=== PATIENT | female | born 1980 | race Caucasian/White ===

== ENCOUNTER 2017-02-23 07:00 | Inpatient (IN) | payer OTHER ==
--- NOTE | ~2017-02-23 | A ---
[facility] Nutrition Therapy DATE: 02/25/17 Patient: KACI Chris SHAWN Physician: HARMIC Address: [address] [place] [address] Room/Bed: [address], Zip: [place] [address] Admit Date: 02/23/17 Date of : [birth year] Height: 5 2 Weight: 99 45.3592 NUTRITIONAL ASSESSMENT: REASON: LOW BMI (18.3) PATIENT ADMITTED FOR DETOX AND SI PMH: HEP C, HX WITHDRAWAL SEIZURES Anthropometrics: HT: 5'2", WT:l 100#, BMI: 18.3, %IBW: 91 Labs: NO LABS AVAILABLE Meds: DESYREL, MVI, DETOX PROTOCOL Assessment: PATIENT IS A 36 Y/O FEMALE ADMITTED FOR SI AND DETOX. PATIENT IS CURRENTLY UNEMPLOYED, LIVES ALONE, SMOKES 1 1/2 PPD, HAS DAILY ETOH AND MARIJUANA USE, AND HAS A RECENT HX OF COCAINE AND HEROIN ABUSE. PATIENT HAS A HX OF CHEMICAL DEPENDENCY TREATMENT. UPON ADMIT PATIENT STATED A FAIR APPETITE WITH NO RECENT WEIGHT CHANGES. NURSING REPORTS FAIR PO INTAKES. PATIENT HAS HAD SOME C/O NAUSEA AND DIARRHEA. SHE IS ACTIVELY DETOXING. DESYREL MAY CAUSE AN INCREASE IN WEIGHT AND APPETITE. THERE ARE NO SKIN ISSUES NOTED ATT. PATIENT IS ON A REGULAR DIET. Dx: INADEQUATE NUTRIENT INTAKE R/T CURRENT CONDITIONS, DRUG USE AEB LOW BMI Intervention: REGULAR DIET, MEDS PER MD, DETOX, PSYCH Monitoring, Evaluation and Goals: 1. ADEQUATE PO INTAKES >50% OF MEALS 2. PREVENT, CORRECT MICRO/MACRO NUTRIENT DEFICIENCIES 3. WEIGHT; PROMOTE A STEADY WEIGHT GAIN TOWARDS A HEALTHY BMI OF 19-25 MONITOR: WEIGHTS, LABS, PO/FLUID INTAKES Recommendations: 1. CONTINUE REGULAR DIET TOLERATED. OFFER SNACKS BETWEEN MEALS. IF PATIENT HAS C/O HUNGER PLEASE SEND ORDER FOR LARGER PORTIONS AND RD WILL APPROVE 2. ENCOURAGE ADEQUATE PO AND FLUID INTAKES 3. OBTAIN WEIGHTS ROUTINELY (EVERY 3-4 DAYS) 4. IF PO INTAKES FALL BELOW 50% OF MEALS PLEASE ORDER ENSURE BID TO PROMOTE ADEQUATE KCAL AND PROTEIN INTAKES [facility] Nutrition Therapy DATE: 02/25/17 Patient: KACI ESCOBAR Physician: HARMIC Address: [address] [place] [address] Room/Bed: [address], Zip: [place] [address] Admit Date: 02/23/17 Date of : [birth year] Height: 5 2 Weight: [address] TO F/U PER PROTOCOL AND PRN R/T PATIENT MILDLY COMPROMISED Respectfully, PAUL WATT, RAUL, LD [facility] cc: client file
--- NOTE | ~2017-02-23 | DS ---
Unit #: [id number] #: [id number] Patient: KACI ESCOBAR [id number] [facility] [address] [place] [address] [id number] MR#: [id number] NAME: KACI ESCOBAR. ROOM: P184 Age: 36 Sex: F Admission Date: 02/23/2017 : 1980 Discharge Date: 02/28/2017 Attending Physician: Kojo Khan M.D. Primary Care Physician: Matteo Hummel Jr., D.O. DISCHARGE SUMMARY REASON FOR ADMISSION Kaci is a 36-year-old woman, who presented to [facility] in extremely intoxicated state, having made suicidal statements and cuts on her arm. After medical clearance, [facility] DIAGNOSTIC STUDIES LABORATORY RESULTS: Please see hospital chart. HOSPITAL COURSE caleb was admitted and placed on suicide precautions and the alcohol detox protocol. Due to the presence of depression and anxiety, venlafaxine XR 75 mg daily was started for treatment of depression and anxiety with the use of trazodone as needed for insomnia. Her physical examination was conducted and was remarkable only for a history of withdrawal seizures. However, she had no seizure activity, confusion, disorientation, or delirium during her hospitalization. On the date of discharge, she contracted for safety with improved spirits and establishment of sobriety. DISCHARGE DIAGNOSES AXIS I: Alcohol dependence with withdrawal, uncomplicated; major depressive disorder. AXIS II: No diagnosis. AXIS III: None acute. AXIS IV: AXIS V: DISCHARGE INSTRUCTIONS Follow up with [facility] and chemical dependency programing through community mental health resources. She was also referred to [facility] for mental health treatment. DISCHARGE MEDICATIONS Effexor XR 75 mg daily for depression and trazodone 50 mg at bedtime as needed for insomnia. CONDITION AT DISCHARGE Improved. PROGNOSIS Fair to good. Unit #: [id number] #: [id number] Patient: KACI ESCOBAR DIET AND ACTIVITY Per primary care doctor. Dictated by... Kojo Khan M.D. CHANO/donl TD: 03/22/2017 14:30 JOB #: [id number] DISCHARGE SUMMARY Page 1 of 1 X Kojo Khan MD DISCHARGE SUMMARY
--- NOTE | ~2017-02-23 | HP ---
Unit #: [id number] #: [id number] Patient: KACI ESCOBAR [id number] [place] [address] [id number] I MR#: [id number] NAME: KACI ESCOBAR. ROOM: P184 Age: 36 Sex: F Admission Date: 02/23/2017 : 1980 Attending Physician: Kojo Khan M.D. Admitting Physician: Kojo Khan M.D. Primary Care Physician: Matteo Hummel Jr., D.O. HISTORY AND PHYSICAL HISTORY OF PRESENT ILLNESS Kaci is a 36 year old admitted to [facility] because of her abuse of alcohol. PAST MEDICAL HISTORY 1. Long history of alcohol abuse. 2. History of withdrawal seizures. PAST SURGICAL HISTORY Nothing reported. ALLERGIES No known drug allergies. SOCIAL HISTORY Smokes one-half pack per day. Drinks a half gallon of vodka every two days admits to using marijuana frequently. FAMILY HISTORY Medically noncontributory. REVIEW OF SYSTEMS CONSTITUTIONAL: No fever or chills. HEENT: Denies any sore throat, ear pain or runny nose. CARDIOVASCULAR: Denies chest pain, irregular heart rhythm or palpitations. CHEST: Denies shortness of breath or cough. No hemoptysis. GASTROINTESTINAL: Denies nausea, vomiting, diarrhea or chronic constipation. ENDOCRINE: Denies history of increased thirst or urination. No recent significant weight loss or gain. GENITOURINARY: Denies dysuria, frequency, or hematuria. SKIN: Denies any rashes. HEMATOLOGIC: Denies history of increased bleeding or bruising. MUSCULOSKELETAL: Denies any hot, swollen joints. No generalized muscle pain. NEUROLOGIC: Denies problems with vision or speech. No frequent, severe headaches. No numbness, tingling or weakness in any extremities. Denies loss of bladder or bowel control. CURRENT MEDICATIONS Detox protocol. Unit #: [id number] #: [id number] Patient: KACI ESCOBAR PHYSICAL EXAMINATION GENERAL: Alert, well-nourished, in no apparent distress. VITAL SIGNS: Blood pressure 146/100, heart rate 82, respirations 16, temperature 98.6. WEIGHT: 100 pounds. HEIGHT: 5'2". SKIN: She has a healing abrasion along her right elbow. The area has scabbed over. There is no increased redness, swelling, heat or pus noted. HEENT: Normocephalic. TMs not viewed. Oral and nasal passages clear. Conjunctivae clear. Pupils equal, round and reactive to light and accommodation. Extraocular movements intact. NECK: Supple without lymphadenopathy or thyromegaly. HEART: Regular rate and rhythm without murmur. LUNGS: Clear. ABDOMEN: Soft, nontender. : Not done. EXTREMITIES: No evidence of cyanosis, clubbing or edema. Moves all extremities without focal deficit. NEUROLOGICAL: Grossly within normal limits. Cranial Nerves: II: Visual musa are intact. III, IV AND : Extraocular movements are intact. Pupils are equal, round and reactive to light. V: Facial sensation is grossly normal. VII: Facial movements and expression are normal. VIII: Auditory acuity grossly intact. IX, X: Uvula is midline. Phonation is normal. XI: Patient shrugs shoulders and turns head normally. XII: Tongue protrudes in the midline. Sensory and Motor Function: Sensory and motor sensation is grossly normal. Motor: moves all extremities well. Coordination: Gait is normal. Deep Tendon Reflexes: Intact. IMPRESSION Psychiatric admission RECOMMENDATIONS PSYCHIATRIC: Per psychiatrist. MEDICAL: I see no contraindications to participating in facility's activities. MEDICAL PROGNOSIS Good. MEDICAL CONDITION Stable. Dictated by... Cheri Arguello P.A.-C. for Chata Brunner/kyra TD: 02/23/2017 23:08 JOB #: [id number] Unit #: [id number] #: [id number] Patient: KACI ESCOBAR HISTORY AND PHYSICAL Page 1 of 1 X Cheri Arguello HISTORY AND PHYSICAL
--- NOTE | ~2017-02-23 | PN ---
Unit #: [id number] #: [id number] Patient: KACI ESCOBAR [id number] [facility] [address] [place] [address] [id number] I MR#: [id number] NAME: KACI ESCOBAR. ROOM: P184 Age: 36 Sex: F Admission Date: 02/23/2017 : 1980 Attending Physician: Kojo Khan M.D. Admitting Physician: Kojo Khan M.D. Primary Care Physician: Matteo Hummel Jr., D.O. DEAN PROGRESS NOTES DATE February 26, [address] Kojo Khan DISCUSSION This patient was seen and evaluated on February 26, 2017. She reports ongoing anxiety. She denies any SI and contracts for safety. She remained pleasant during interaction. Her appetite and sleep are deemed fair at this time. She is attending groups and unit activities. The patient has no other complaints at this time. She will continue in inpatient hospitalization with medication management and group therapy. Dictated by... Gretchen Clemons/abiola TD: 03/01/2017 09:07 JOB #: [id number] [facility] PROGRESS NOTES Page 1 of 1 X Precious Thomas PROGRESS NOTE
--- NOTE | ~2017-02-23 | PA ---
Unit #: [id number] #: [id number] Patient: KACI ESCOBAR [id number] [place] [address] [id number] I MR#: [id number] NAME: KACI ESCOBAR. ROOM: P184 Age: 36 Sex: F Admission Date: 02/23/2017 : 1980 Date of Assessment: Attending Physician: Kojo Khan M.D. Admitting Physician: Kojo Khan M.D. Primary Care Physician: Matteo Hummel Jr. D.O. PSYCHIATRIC ASSESSMENT DATE OF SERVICE 02/24/2017. INFORMANTS Patient, reliable; [facility], reliable. CHIEF COMPLAINT Alcoholism and suicide attempt. HISTORY OF PRESENT ILLNESS Kaci Rizo is a 36-year-old woman, who presented to [facility] with high blood alcohol of over 400 and had made scratches on her arm. The police stated that she tried to kill herself, and the patient did not have any memory of this due to alcoholic blackout. She was unable to contract for safety and could not abstain for alcohol use, although she denied active suicidal ideation. She was transferred for inpatient assessment and detox. PAST PSYCHIATRIC HISTORY The patient has had numerous sober living placements and has been in outpatient treatment for depression and alcoholism in the past. She currently does not take psychiatric medications. FAMILY PSYCHIATRIC HISTORY The patient has a brother with substance abuse problems. SOCIAL HISTORY The patient denied a history of childhood abuse or neglect. She says that she was arrested for resisting arrest in [place], [place] and has "unresolved issues" for assault and battery. She has difficulty keeping a job due to ongoing alcohol use and is currently living in an apartment. She is beginning a new job soon. PAST MEDICAL HISTORY Significant for untreated hepatitis C. MEDICATIONS None currently. ALLERGIES No known medication allergies. SUBSTANCE USE HISTORY Unit #: [id number] #: [id number] Patient: KACI ESCOBAR As noted above. The patient has a history of alcohol use, smokes cannabis and cocaine in the past. MENTAL STATUS EXAMINATION The patient presented as a mildly disheveled woman, who appeared her stated age. She was irritable, but generally cooperative with the examination. Her speech was spontaneous and easily understood. Musculoskeletal examination was calm. Her mood was irritable with a congruent affect. She was alert and fully oriented. Memory and concentration were fair. Thought processes were goal directed with no active psychosis, confusion, or disorientation. She now denied suicidal ideation, intent, or plan. Insight and judgment, fair. Fund of knowledge and abstraction, fair. ASSETS AND LIABILITIES the patient knows local resources and is amenable to treatment. Liabilities include difficulty maintaining sobriety and unstable employment. ADMITTING DIAGNOSES AXIS I: Alcohol dependence with withdrawal, uncomplicated F10.230. AXIS II: No diagnosis. AXIS III: None acute. AXIS IV: AXIS V: PSYCHIATRIC PLAN The patient was admitted and placed on suicide precautions and alcohol detox protocol. Effexor XR 75 mg daily will be initiated for treatment of depression, anxiety, and trazodone will be provided as needed for insomnia. She will enroll in dual diagnosis groups and activities. Physical examination and laboratory studies will be ordered and reviewed. TREATMENT GOALS Resolution of SI, improvement in insight, establishment of sobriety, improvement in coping skills. DISCHARGE PLANNING Follow up with [facility] for chemical dependence and psychiatric treatment. ESTIMATED LENGTH OF STAY 5 days. Dictated by... Kojo Khan M.D. [facility]/sharon TD: 03/22/2017 13:10 JOB #: [id number] Unit #: [id number] #: [id number] Patient: KACI ESCOBAR PSYCHIATRIC ASSESSMENT Page 1 of 1 X Kojo Kahn MD X PSYCHIATRIC ASSESSMENT
== END 2017-02-28 13:10 | DRG 897 ==
LOC: P1E 12:02
PROC: HZ2ZZZZ Detoxification Services for Substance Abuse Treatment (ICD-10-PCS; principal; 2017-02-23)
DX: F10.239 Alcohol dependence with withdrawal, unspecified (principal); F32.9 Major depressive disorder, single episode, unspecified; F41.9 Anxiety disorder, unspecified; F17.210 Nicotine dependence, cigarettes, uncomplicated
CPT/HCPCS: 84703; J2550